=== PATIENT | female | born 1965 | race Two or more races ===

== ENCOUNTER → 2019-07-01 | Emergency (ER) | payer OTHER ==
[~2019-07-01] VITALS: Ht 157.5 cm; Wt 63.5 kg
[~2019-07-01] MED LIST: ALAVERT10 MG PO
== END | disposition home or self-care (01) ==
LOC: ER 11:50
DX: K52.89 Other specified noninfective gastroenteritis and colitis (principal)

== ENCOUNTER 2019-11-09 16:50 | Emergency (ER) | payer OTHER ==
[~2019-11-09] VITALS: Ht 157.5 cm; Wt 68.0 kg
== END 2019-11-09 21:40 | disposition home or self-care (01) ==
LOC: ER 16:50
DX: K29.70 Gastritis, unspecified, without bleeding (principal)

== ENCOUNTER 2021-08-08 12:11 | Emergency (ER) | payer OTHER ==
[~2021-08-08] VITALS: Ht 157.5 cm; Wt 63.5 kg
== END 2021-08-08 14:56 | disposition home or self-care (01) ==
LOC: ER 12:11
DX: M25.552 Pain in left hip (principal)

== ENCOUNTER 2025-04-01 01:27 | Inpatient (IN) | payer OTHER ==
[~2025-04-01] VITALS: Ht 157.5 cm; Wt 56.7 kg
--- NOTE | 2025-04-01 01:54 | NUR ---
SE RECIBE PACIENTE ALERTA Y ORIENTADA X3 LA CUAL REFIERE VENIR A CAUSA DE DOLOR ABDOMINAL Y VOMITOS DESDE LA TARDE DE HOY. SE MIDEN S/V Y SE UBICA.
[2025-04-01] MEDS ORDERED: MORPHINE SULFATE 4 MG/ML VIAL IV STA (02:23)
[2025-04-01] MEDS ORDERED: PROMETHAZINE HCL 50 MG/ML AMPUL IM STA (02:24)
[2025-04-01] MEDS ORDERED: 0.9 % SODIUM CHLORIDE 1,000 ML IV ONE (02:30)
[2025-04-01] MEDS ORDERED: PROMETHAZINE HCL 50 MG/ML AMPUL IM ONE (02:34)
[2025-04-01 02:54] LABS: BASO % 0.3 % (0.1-1.2); EOS # 0.05 (0.04-0.54); EOS % 0.4 % (0.7-7.0); HEMATOCRIT 39.6 % (34.1-44.9); HEMOGLOBIN 14.1 g/dL (11.2-15.7); LYMPH # 1.47 (1.18-3.74); MONO # 0.66 (0.24-0.82); MONO % 5.4 % (4.7-12.5); NEUT # 10.03 (1.56-6.13); NEUT % 81.7 % (34.0-71.1); PLATELET COUNT 281 K/uL (163-369); RED BLOOD COUNT 4.41 M/uL (3.93-5.22); RED CELL DISTRIBUTION WIDTH 11.9 % (11.6-14.4)
[2025-04-01] MEDS ORDERED: BARIUM SULFATE 450 ML ORAL.SUSP PO ONE (03:16)
[2025-04-01 03:18] LABS: ALBUMIN 4.2 gm/dL (3.4-5.0); BILIRUBIN TOTAL 0.8 mg/dL (0.3-1.2); BILIRUBIN,CONJUGATED 0.21 mg/dL (0.0-0.2); BILIRUBIN,UNCONJUGATED 0.59 mg/dL (0.0-0.6); CALCIUM 9.6 mg/dL (8.5-10.1); CREATININE SERUM 0.51 mg/dL (0.55-1.02); GFR 123.86; GLOBULINA 2.8 G/DL (2.4-3.5); INR 1.03; PARTIAL THROMBOPLASTIN TIME 24.1 SECONDS (22.0-34.0); POTASSIUM 3.82 mEq/L (3.5-5.1); PROTHROMBIN TIME 11.2 SECONDS (9.0-11.5)
--- NOTE | 2025-04-01 06:56 | NUR ---
PTE EVALUADA POR EL DR. STYLES. SE ORIENTA SOBRE TRATAMIENTO, VERBALIZA ENTENDER. SE CANALIZA, COLECTA MUESTRAS DE LAB Y SE ADMINISTRA MEDICAMENTO ULISES ORDEN MEDICA BAJO MEDIDAS ASEPTICAS. SE COMIENZA CONTRASTE PO PARA TRATAMIENTO.
[2025-04-01] MEDS ORDERED: DIATRIZOATE MEGLUMINE, SODIUM 30 ML BOTTLE PO ONE (07:15)
[2025-04-01] MEDS ORDERED: DIATRIZOATE MEGLUMINE, SODIUM 30 ML BOTTLE ONE (07:19)
[2025-04-01] MEDS ORDERED: MORPHINE SULFATE 4 MG/ML VIAL IV ONE (09:00)
--- NOTE | 2025-04-01 09:02 | NUR ---
PTE VOMITA CONTRASTE PO, SE INFORMA QUIEN REFIERE REALIZAR CT WITH IV. SE ORIENTA PTE.
[2025-04-01 09:15] LABS: PH,URINE 7.5 (5.0-8.0); URINE APPEARANCE Clear; URINE BILIRRUBIN Negative (NEGATIVE); URINE BLOOD Negative; URINE COLOR Yellow; URINE GLUCOSE Negative (NEGATIVE); URINE KETONE 15 (NEGATIVE); URINE LEUKOCYTE Negative; URINE NITRATE Negative; URINE PROTEIN Negative (NEGATIVE); URINE UROBILINOGEN 0.2 E.U./dl
[2025-04-01 09:17] LABS: URINE BACTERIA 15.9 uL (0.0-1933); URINE WBC 12.1 uL (0.0-23.2)
[2025-04-01 09:29] LABS: URINE CAST 0.14 uL (0.0-1.40); URINE RBC 1.1 uL (0.0-20.8)
[2025-04-01] MEDS ORDERED: PIPERACILLIN/TAZOBACTAM SODIUM 3.375 GM VIAL IV ONE ×3 (12:55→17:32)
[2025-04-01] MEDS ORDERED: ACETAMINOPHEN 325 MG TABLET PO PRN (17:15)
[2025-04-01] MEDS ORDERED: ONDANSETRON HCL 4 MG in 0.9 % SODIUM CHLORIDE 50 ML IV PRN (17:15)
[2025-04-01] MEDS ORDERED: 0.9 % SODIUM CHLORIDE 1,000 ML IV SCH ×2 (17:15→21:15)
[2025-04-01] MEDS ORDERED: BUPIVACAINE HCL/Mpf 0.5% 10ML VIAL ONE ×2 (17:26→20:05)
[2025-04-01] MEDS ORDERED: LIDOCAINE HCL 1%/EPINEPHRINE 20ML VIAL IJ ONE (17:26)
[2025-04-01] MEDS ORDERED: DESMOPRESSIN ACETATE 4 MCG/ML AMPUL IV NR (17:45)
[2025-04-01] MEDS ORDERED: PIPERACILLIN/TAZOBACTAM SODIUM 3.375 GM in 0.9 % SODIUM CHLORIDE 100 ML IV SCH (18:00)
[2025-04-01] MEDS ORDERED: DESMOPRESSIN ACETATE 4 MCG/ML AMPUL IV ONE (18:00)
[2025-04-01 18:06] LABS: COVID-19 AG NEGATIVE (NEGATIVE)
[2025-04-01] MEDS ORDERED: KETOROLAC TROMETHAMINE 30 MG VIAL IV PRN (21:15)
[2025-04-02] MEDS ORDERED: PIPERACILLIN/TAZOBACTAM SODIUM 3.375 GM VIAL IV ONE (00:29)
[2025-04-02 01:10] VITALS: BP 94/55; O2SAT 95
[2025-04-02 07:07] LABS: BASO % 0.3 % (0.1-1.2); HEMATOCRIT 34.7 % (34.1-44.9); HEMOGLOBIN 11.8 g/dL (11.2-15.7); LYMPH # 0.57 (1.18-3.74); LYMPH % 5.3 % (19.3-53.1); MEAN CORPUSCULAR HEMOGLOBIN 30.9 pg (25.6-32.2); MONO # 0.79 (0.24-0.82); MONO % 7.3 % (4.7-12.5); NEUT % 86.9 % (34.0-71.1); PLATELET COUNT 261 K/uL (163-369); RED BLOOD COUNT 3.82 M/uL (3.93-5.22); RED CELL DISTRIBUTION WIDTH 12.5 % (11.6-14.4)
[2025-04-02 07:42] LABS: CALCIUM 8.5 mg/dL (8.5-10.1); CREATININE SERUM 0.44 mg/dL (0.55-1.02); GFR 146.87; POTASSIUM 3.66 mEq/L (3.5-5.1)
[2025-04-02] MEDS ORDERED: PANTOPRAZOLE SODIUM 40 MG/VIAL VIAL IV SCH (09:00)
[2025-04-02 16:05] VITALS: BP 102/65; O2SAT 98
[2025-04-03 00:45] VITALS: BP 111/74; O2SAT 100
[2025-04-03 05:07] LABS: hav igm Negative (Negative); hcv Non Reactive (Non Reactive); hep b c Negative (Negative); hep b s ag Negative (Negative)
[2025-04-03 08:28] VITALS: BP 117/75; O2SAT 96
[2025-04-03 11:55] LABS: BASO % 0.2 % (0.1-1.2); EOS # 0.02 (0.04-0.54); EOS % 0.2 % (0.7-7.0); HEMATOCRIT 30.7 % (34.1-44.9); HEMOGLOBIN 10.6 g/dL (11.2-15.7); LYMPH # 0.94 (1.18-3.74); LYMPH % 10.7 % (19.3-53.1); MEAN CORPUSCULAR HEMOGLOBIN 31.5 pg (25.6-32.2); MONO % 6.9 % (4.7-12.5); NEUT # 7.15 (1.56-6.13); NEUT % 81.8 % (34.0-71.1); PLATELET COUNT 205 K/uL (163-369); RED BLOOD COUNT 3.36 M/uL (3.93-5.22); RED CELL DISTRIBUTION WIDTH 12.3 % (11.6-14.4)
[2025-04-03 16:40] VITALS: BP 120/78; O2SAT 96
[2025-04-04] VITALS: BP 119/78; O2SAT 97
[2025-04-04 08:41] LABS: BASO % 0.5 % (0.1-1.2); EOS # 0.12 (0.04-0.54); EOS % 1.9 % (0.7-7.0); HEMATOCRIT 30.9 % (34.1-44.9); HEMOGLOBIN 10.3 g/dL (11.2-15.7); LYMPH # 1.07 (1.18-3.74); LYMPH % 16.9 % (19.3-53.1); MEAN CORPUSCULAR HEMOGLOBIN 30.7 pg (25.6-32.2); MONO # 0.44 (0.24-0.82); MONO % 6.9 % (4.7-12.5); NEUT # 4.67 (1.56-6.13); NEUT % 73.5 % (34.0-71.1); PLATELET COUNT 203 K/uL (163-369); RED BLOOD COUNT 3.36 M/uL (3.93-5.22); RED CELL DISTRIBUTION WIDTH 12.1 % (11.6-14.4)
[2025-04-04 08:53] VITALS: BP 107/72; O2SAT 98
[2025-04-04 16:05] VITALS: BP 126/79; O2SAT 100
[2025-04-05 00:10] VITALS: BP 117/77; O2SAT 100
[2025-04-05 07:17] LABS: BASO % 0.4 % (0.1-1.2); EOS # 0.18 (0.04-0.54); EOS % 3.3 % (0.7-7.0); HEMATOCRIT 29.1 % (34.1-44.9); LYMPH % 18.5 % (19.3-53.1); MEAN CORPUSCULAR HEMOGLOBIN 31.1 pg (25.6-32.2); MONO # 0.34 (0.24-0.82); MONO % 6.3 % (4.7-12.5); NEUT # 3.85 (1.56-6.13); NEUT % 71.3 % (34.0-71.1); PLATELET COUNT 237 K/uL (163-369); RED BLOOD COUNT 3.22 M/uL (3.93-5.22)
[2025-04-05] MEDS ORDERED: AMOX-CLAV 875-1 EAC1 PO (07:57)
[2025-04-05] MEDS ORDERED: PEPCID AC20 MG PO (07:58)
[2025-04-05] MEDS ORDERED: INTESTINEX680 M2 PO (07:59)
[2025-04-05 08:36] VITALS: BP 113/75; O2SAT 100
[2025-04-06 07:20] VITALS: BP 117/69; O2SAT 100
== END 2025-04-05 13:04 | disposition home or self-care (01) | DRG 354 ==
LOC: ER 02:17 → SURH 17:35 → SEC-K 17:35 → SURH 18:48
PROVIDERS: General Practice; Student in an Organized Health Care Education/Training Program; Surgery; ADMIT Internal Medicine; ATTEND Internal Medicine
PROC: 0WJG4ZZ Inspection of Peritoneal Cavity, Percutaneous Endoscopic Approach (ICD-10-PCS; 2025-04-01)
PROC: 0W9G4ZZ Drainage of Peritoneal Cavity, Percutaneous Endoscopic Approach (ICD-10-PCS; 2025-04-01)
PROC: BW21YZZ Computerized Tomography (CT Scan) of Abdomen and Pelvis using Other Contrast (ICD-10-PCS; 2025-04-01)
PROC: 0WQF4ZZ Repair Abdominal Wall, Percutaneous Endoscopic Approach (ICD-10-PCS; principal; 2025-04-01 20:00)
DX: K35.33 Acute appendicitis with perforation, localized peritonitis, and gangrene, with abscess (principal); D68.00 Von Willebrand disease, unspecified; R18.8 Other ascites; K43.9 Ventral hernia without obstruction or gangrene